=== PATIENT | female | born 1955 | race American Indian/Alaskan Native ===

== ENCOUNTER 2017-05-02 07:09 | Day surgery (SDC) | payer OTHER ==
[~2017-05-02] VITALS: Ht 157.5 cm; Wt 87.1 kg
[~2017-05-02 07:09] MED LIST: CRUTCH1 EACH; GLIPIZIDE ER2.5 MG PO; GLIPIZIDE5 MG PO; GLUCOPHAGE500 MG PO; LISINOPRIL2.5 MG PO; NORCO 5-325 TA1 EACH PO
[2017-05-02] MEDS ORDERED: ALENDRONATE SODI5 MG PO (07:33)
[2017-05-02] MEDS ORDERED: METHIMAZOLE10 MG PO (07:34)
--- NOTE | 2017-05-02 08:55 | NUR ---
05/02/17 0855 Joss,Josep SAT 100, O2 DECREASED TO 1L.
--- NOTE | 2017-05-03 21:35 | OR ---
[facility] [address], [place] [address] Signed DATE OF PROCEDURE: 05/02/17 PREOPERATIVE DIAGNOSIS: Iron-deficiency anemia. POSTOPERATIVE DIAGNOSES Moderate diffuse punctate hemorrhagic gastritis. A 5-mm polyp at 16 cm. A 10-mm polyp at 15 cm (type 2). PROCEDURE EGD with CLOtest and biopsies of the antrum. Colonoscopy with snare polypectomy, hot biopsy and injection of tattoo. ESTIMATED BLOOD LOSS: None. INDICATIONS Olga Lidia is a 62-year-old female who was asked to see me for upper and lower endoscopy because of her iron deficiency anemia. She has no upper or lower GI complaints. There is no family history of colon cancer or polyps. She has never had a previous endoscopy. I met with Olga Lidia in the office. I gave her pamphlets on both upper and lower endoscopy. We discussed the nature of the 2 tests along with the risks including, but not limited to gas bloating, crampy abdominal pain, bleeding, perforation requiring surgery, and missed diagnosis. We also discussed the need for IV conscious sedation. She had expressed understanding and wished to proceed. PROCEDURE Olga Lidia was taken into endoscopy suite and placed in the supine position. The posterior oropharynx was anesthetized with Hurricaine spray. A bite block was utilized for the case. She was given a total of 8 mg of Versed and 150 mcg of Fentanyl to cover both cases. The adult gastroscope was introduced and advanced under direct visualization of camera without difficulty. The duodenum was unremarkable. Her stomach showed moderate diffuse punctate hemorrhagic gastritis throughout. We took a biopsy of the antrum for pathologic review along with CLOtest. Upon retroflexion of the scope, we did not see a hiatal hernia. There were no gastric or esophageal varices. The scope was withdrawn up through the GE junction, which was compliant without stricture. There was very mini mal disruption to the Z-line. There was no Courtney's mucosa, no distal esophagitis. The middle and upper esophagus were unremarkable. After this, the gas was suctioned out and the gastroscope removed. Olga Lidia tolerated the procedure quite well. Olga Lidia was the n rotated into the left lateral decubitus position. She was maintained on IV sedation with Versed and fentanyl. A digital rectal exam was performed and this was unremarkable. The adult colonoscope was introduced and advanced all around into the Electronically Signed By: MARC BILLINGSLEY MD 05/03/17 2135 PATIENT NAME: OLGA LIDIA VILLALTA OPERATIVE REPORT DATE OF : 51 PHYSICIAN: MARC BILLINGSLEY MD REPORT #: [id number] REPORT IS CONFIDENTIAL AND NOT TO BE RELEASED WITHOUT AUTHORIZATION [facility] [address], [place] [address] Signed cecum under direct visualization of camera without difficulty. She had a couple areas of liquid particulate stool matter most of which we could irrigate and suction out. The scope was then slowly withdrawn. We found a small 5-mm polyp at 16 cm. It was easily removed with hot biopsy forceps. Just across from it was a larger polyp probably 10 mm in diameter. We used the snare to remove over 90% of it. We then removed the rest of it with the help of hot biopsy forceps. We went ahead and placed a tattoo just to the side of the polypectomy site to josephine its location. It looks like it is just above the rectum. After this, the scope was then retroflexed and there was no additional pathology noted above the anal canal. The gas was then suctioned out and the colonoscope removed. Olga Lidia tolerated the procedure quite well. RECOMMENDATIONS I will see Olga Lidia back in my office in 7-14 days to review her results. MD WILLA Brush/[place] /[id number] cc: MD Joe Berumen MD Electronically Signed By: MARC BILLINGSLEY MD 05/03/17 2135 PATIENT NAME: OLGA LIDIA VILLALTA OPERATIVE REPORT DATE OF : 51 PHYSICIAN: MARC BILLINGSLEY MD REPORT #: [id number] REPORT IS CONFIDENTIAL AND NOT TO BE RELEASED WITHOUT AUTHORIZATION
== END 2017-05-02 09:30 | disposition home or self-care (01) ==
LOC: OPS 07:09 → DS 07:09 → OPS 08:15 → DS 08:15 → OPS 09:30
PROVIDERS: Colon & Rectal Surgery
PROC: 0DBF8ZX Excision of Right Large Intestine, Via Natural or Artificial Opening Endoscopic, Diagnostic (ICD-10-PCS; 2017-05-02)
PROC: 0DB68ZX Excision of Stomach, Via Natural or Artificial Opening Endoscopic, Diagnostic (ICD-10-PCS; 2017-05-02)
PROC: 0DB98ZX Excision of Duodenum, Via Natural or Artificial Opening Endoscopic, Diagnostic (ICD-10-PCS; 2017-05-02)
PROC: 3E0H8GC Introduction of Other Therapeutic Substance into Lower GI, Via Natural or Artificial Opening Endoscopic (ICD-10-PCS; principal; 2017-05-02 08:15)
PROC: 0DBE8ZX Excision of Large Intestine, Via Natural or Artificial Opening Endoscopic, Diagnostic (ICD-10-PCS; 2017-05-02 08:15)
DX: D12.6 Benign neoplasm of colon, unspecified (principal); K29.51 Unspecified chronic gastritis with bleeding; E78.5 Hyperlipidemia, unspecified; E55.9 Vitamin D deficiency, unspecified; E03.9 Hypothyroidism, unspecified; E11.9 Type 2 diabetes mellitus without complications; D50.9 Iron deficiency anemia, unspecified; Z87.891 Personal history of nicotine dependence; Z79.82 Long term (current) use of aspirin; Z88.5 Allergy status to narcotic agent; Z79.899 Other long term (current) drug therapy
CPT/HCPCS: 86677; 99152; 99153; J2250; J3010; J7120

== ENCOUNTER 2021-06-09 15:14 | Emergency (ER) | payer OTHER, MEDICARE ==
[~2021-06-09] VITALS: Ht 152.4 cm; Wt 87.1 kg
[~2021-06-09 15:14] MED LIST changes: +ALENDRONATE SODI5 MG PO; +METHIMAZOLE10 MG PO
[2021-06-09] MEDS ORDERED: PERCOCET 5-3251 EACH PO (17:22)
== END 2021-06-09 18:07 | disposition home or self-care (01) ==
LOC: ED 15:14
DX: S52.572A Other intraarticular fracture of lower end of left radius, initial encounter for closed fracture (principal); S52.612A Displaced fracture of left ulna styloid process, initial encounter for closed fracture; E11.9 Type 2 diabetes mellitus without complications; W01.10XA Fall on same level from slipping, tripping and stumbling with subsequent striking against unspecified object, initial encounter; Z87.891 Personal history of nicotine dependence; Z88.5 Allergy status to narcotic agent; Z79.899 Other long term (current) drug therapy; Z79.84 Long term (current) use of oral hypoglycemic drugs
CPT/HCPCS: 29125; 73030; 73110; 99283-25